=== PATIENT | female | born 1935 | race Caucasian/White ===

== ENCOUNTER 2022-08-07 07:54 | Emergency (ER) | payer MEDICARE, BC ==
[2022-08-07] MEDS ORDERED: Sodium Chloride 0.9% 10 ML Syringe FLUSH PRN (08:14)
[2022-08-07 08:56] LABS: ESTIMATED GFR 72 mL/min (>60)
[2022-08-07] MEDS ORDERED: Lisinopril 5 MG Tab PO ONE (09:28)
[2022-08-07 10:01] LABS: CORONAVIRUS COVID-19 NAA NEGATIVE (NEGATIVE)
== END 2022-08-07 11:02 | disposition home or self-care (01) ==
LOC: JP.ED 07:54
DX: R41.0 Disorientation, unspecified (principal); I10 Essential (primary) hypertension; E78.5 Hyperlipidemia, unspecified; Z20.822 Contact with and (suspected) exposure to COVID-19
CPT/HCPCS: 0241U; 36415; 70450; 71045; 80053; 81001; 82803; 82947; 84443; 85025; 86140; 93005; 99285; A9270; J3490; 93010; 99284